=== PATIENT | male | born 1960 | race Caucasian/White ===

== ENCOUNTER 2019-01-12 17:35 | Emergency (ER) | payer OTHER ==
[~2019-01-12] VITALS: Ht 172.7 cm; Wt 77.1 kg
[2019-01-12 18:25] LABS: BASOPHILS ABSOLUTE AUTO 0.06 K/mm3 (0.00-0.23); BASOPHILS PERCENT AUTO 1 % (0-2); EOSINOPHILS ABSOLUTE AUTO 0.21 K/mm3 (0.00-0.68); EOSINOPHILS PERCENT AUTO 2 % (0-6); Hematocrit 40.5 % (37.0-53.0); Hemoglobin 14.9 g/dL (13.5-17.5); IMMATURE GRAN ABSOLUTE AUTO 0.05 K/mm3 (0.00-0.10); IMMATURE GRAN PERCENT AUTO 1 % (0-1); LYMPHOCYTES ABSOLUTE AUTO 2.23 K/mm3 (0.84-5.20); LYMPHOCYTES PERCENT AUTO 21 % (21-46); MONOCYTES ABSOLUTE AUTO 1.76 K/mm3 (0.16-1.47); MONOCYTES PERCENT AUTO 17 % (4-13); Mean Corpuscular HGB 40.5 pg (26.0-34.0); Mean Corpuscular HGB Conc 36.8 g/dL (31.5-36.5); Mean Corpuscular Volume 110 fL (80-100); NEUTROPHILS ABSOLUTE AUTO 6.23 K/mm3 (1.96-9.15); NEUTROPHILS PERCENT AUTO 59 % (41-73); Platelet Count 108 K/mm3 (150-400); RDW Coefficient Variation 14.2 % (11.7-14.2); RDW Standard Deviation 58.4 fL (35.1-46.3); Red Blood Cell Count 3.68 M/mm3 (4.30-5.90); White Blood Cell Count 10.54 K/mm3 (4.00-11.30)
[2019-01-12 18:43] LABS: Alanine Aminotransfer (ALT/SGP 58 U/L (12-78); Albumin, Blood 2.5 g/dL (3.4-5.0); Albumin/Globulin Ratio 0.5 (0.8-1.8); Alk Phos 121 U/L (50-136); Anion Gap 8 mmol/L (6-16); Aspartate Aminotrans (AST/SGOT 81 U/L (12-37); Bilirubin, Total 1.9 mg/dL (0.1-1.0); Blood Urea Nitrogen 6 mg/dL (8-24); Bun/Creatinine Ratio 8.7 (12.0-20.0); CO2, Blood 19 mmol/L (21-32); Calcium, Blood 9.1 mg/dL (8.5-10.1); Chloride, Blood 101 mmol/L (98-108); Creatinine, Blood 0.69 mg/dL (0.60-1.20); Globulin, Blood 5.2 g/dL (2.2-4.0); Glomerular Filtration Rate >60 (60-); Glucose, Blood 109 mg/dL (70-99); Potassium, Blood 4.5 mmol/L (3.5-5.5); Sodium, Blood 128 mmol/L (136-145); Total Protein, Blood 7.7 g/dL (6.4-8.2)
[2019-01-12 18:48] LABS: Source, Urine Clean Catch
[2019-01-12 18:51] LABS: Appearance, Urine Clear (Clear); Bilirubin, Urine Neg (Neg); Blood, Urine Neg (Neg); Color, Urine Amber (P-Yellow); Glucose Qualitative, Urine Neg (Neg); Ketones, Urine 1+ (Neg); Leukocyte Esterase, Urine 1+ (Neg); Nitrite, Urine Neg (Neg); Protein, Urine 1+ (Neg); Urobilinogen, Urine 1+ (Normal)
[2019-01-12 18:58] LABS: International Normalized Ratio 1.67; Prothrombin Time Results 16.9 Sec (9.7-11.5)
[2019-01-12 18:59] LABS: Bacteria Many /hpf; Hyaline Casts 0-2 /lpf (0-2); Mucus Light (0-Heavy); Red Blood Cells, Urine 0-2 /hpf (0-2); Squamous Epithelial Cells Rare /hpf (Few); White Blood Cells, Urine 0-2 /hpf (0-5)
== END 2019-01-12 20:45 | disposition home or self-care (01) ==
LOC: ER 17:35
PROVIDERS: Emergency Medicine
DX: K74.60 Unspecified cirrhosis of liver (principal); R18.8 Other ascites; K44.9 Diaphragmatic hernia without obstruction or gangrene; Z88.7 Allergy status to serum and vaccine; I10 Essential (primary) hypertension; F17.200 Nicotine dependence, unspecified, uncomplicated
CPT/HCPCS: 36415; 74177; 80053; 81001; 83690; 85025; 85610; 85730; 87086; 99284-25; Q9967

== ENCOUNTER 2019-01-13 11:14 | Emergency (ER) | payer OTHER ==
[~2019-01-13] VITALS: Ht 172.7 cm; Wt 77.1 kg
== END 2019-01-13 16:23 | disposition home or self-care (01) ==
LOC: ER 11:14
DX: K70.31 Alcoholic cirrhosis of liver with ascites (principal); Z88.7 Allergy status to serum and vaccine; I10 Essential (primary) hypertension; F17.200 Nicotine dependence, unspecified, uncomplicated
CPT/HCPCS: 99282

== ENCOUNTER 2019-01-14 14:36 | Day surgery (SDC) | payer OTHER | END 2019-01-14 22:49 | disposition home or self-care (01) | LOC: US 14:36 | DX: R18.8 Other ascites (principal) | CPT/HCPCS: 49083 ==

== ENCOUNTER 2019-01-15 16:19 | Emergency (ER) | payer OTHER ==
[~2019-01-15] VITALS: Ht 172.7 cm; Wt 72.6 kg
== END 2019-01-15 18:31 | disposition home or self-care (01) ==
LOC: ER 16:19
DX: R18.8 Other ascites (principal); K72.90 Hepatic failure, unspecified without coma; I10 Essential (primary) hypertension; F17.200 Nicotine dependence, unspecified, uncomplicated; Z88.7 Allergy status to serum and vaccine
CPT/HCPCS: 49083; 99284-25

== ENCOUNTER 2019-07-23 13:19 | Day surgery (SDC) | payer OTHER ==
[~2019-07-23 13:19] MED LIST: ACET325UDC PO; ALBU2.5V5 INH; ANTI-DIARR1 MG/7.5 M PO; FURO40 PO; SPIR50 PO
== END 2019-07-23 23:13 | disposition home or self-care (01) ==
LOC: US 13:19
DX: R18.8 Other ascites (principal); K74.60 Unspecified cirrhosis of liver
CPT/HCPCS: 49083

== ENCOUNTER → 2019-08-10 | Day surgery (SDC) | payer OTHER | LOC: US 08-05 08:00 | DX: K70.31 Alcoholic cirrhosis of liver with ascites (principal) | CPT/HCPCS: 76705 ==

== ENCOUNTER 2019-10-27 22:09 | Inpatient (IN) | payer OTHER ==
[~2019-10-27] VITALS: Ht 175.3 cm; Wt 57.6 kg
[2019-10-27 22:46] LABS: BASOPHILS PERCENT AUTO 1 % (0-2); EOSINOPHILS ABSOLUTE AUTO 0.33 K/mm3 (0.00-0.68); EOSINOPHILS PERCENT AUTO 3 % (0-6); Hematocrit 37.3 % (37.0-53.0); Hemoglobin 12.1 g/dL (13.5-17.5); IMMATURE GRAN ABSOLUTE AUTO 0.05 K/mm3 (0.00-0.10); IMMATURE GRAN PERCENT AUTO 1 % (0-1); LYMPHOCYTES ABSOLUTE AUTO 2.45 K/mm3 (0.84-5.20); LYMPHOCYTES PERCENT AUTO 24 % (21-46); MONOCYTES ABSOLUTE AUTO 1.49 K/mm3 (0.16-1.47); MONOCYTES PERCENT AUTO 14 % (4-13); Mean Corpuscular HGB 34.5 pg (26.0-34.0); Mean Corpuscular HGB Conc 32.4 g/dL (31.5-36.5); Mean Corpuscular Volume 106 fL (80-100); Mean Platelet Volume 9.2 fL (9.1-12.4); NEUTROPHILS ABSOLUTE AUTO 5.99 K/mm3 (1.96-9.15); NEUTROPHILS PERCENT AUTO 58 % (41-73); Platelet Count 178 K/mm3 (150-400); RDW Coefficient Variation 16.4 % (11.7-14.2); RDW Standard Deviation 64.3 fL (35.1-46.3); Red Blood Cell Count 3.51 M/mm3 (4.30-5.90); White Blood Cell Count 10.41 K/mm3 (4.00-11.30)
[2019-10-27 23:01] LABS: International Normalized Ratio 1.09; Prothrombin Time Results 11.6 Sec (9.7-11.5)
[2019-10-27 23:05] LABS: Alanine Aminotransfer (ALT/SGP 32 U/L (12-78); Albumin, Blood 3.3 g/dL (3.4-5.0); Albumin/Globulin Ratio 0.7 (0.8-1.8); Alk Phos 114 U/L (50-136); Anion Gap 8 mmol/L (6-16); Aspartate Aminotrans (AST/SGOT 135 U/L (12-37); Bilirubin, Total 0.8 mg/dL (0.1-1.0); Blood Urea Nitrogen 16 mg/dL (8-24); Bun/Creatinine Ratio 16.4 (12.0-20.0); CO2, Blood 26 mmol/L (21-32); Calcium, Blood 10.5 mg/dL (8.5-10.1); Chloride, Blood 109 mmol/L (98-108); Creatinine, Blood 0.98 mg/dL (0.60-1.20); Ethanol (Alcohol), Blood, Med <3 mg/dL; Globulin, Blood 4.7 g/dL (2.2-4.0); Glomerular Filtration Rate >60 (60-); Glucose, Blood 97 mg/dL (70-99); Potassium, Blood 3.6 mmol/L (3.5-5.5); Sodium, Blood 143 mmol/L (136-145); Troponin I 0.358 ng/mL (0.000-0.040)
[2019-10-28 00:27] LABS: Source, Urine Catheter
[2019-10-28 00:32] LABS: Bilirubin, Urine Neg (Neg); Blood, Urine 3+ (Neg); Glucose Qualitative, Urine Neg (Neg); Ketones, Urine Neg (Neg); Leukocyte Esterase, Urine Neg (Neg); Nitrite, Urine Neg (Neg); Protein, Urine 1+ (Neg); Urobilinogen, Urine NORM (Normal)
[2019-10-28 00:33] LABS: Appearance, Urine Clear (Clear); Color, Urine Yellow (P-Yellow)
[2019-10-28 00:39] LABS: Bacteria Few /hpf; Red Blood Cells, Urine 0-2 /hpf (0-2); Squamous Epithelial Cells Not Seen /hpf (Few); White Blood Cells, Urine 0-2 /hpf (0-5)
[2019-10-28 00:42] LABS: U Amphetamine Screen Not Detected; U Barbituate Screen Not Detected; U Benzodiazapine Screen Not Detected; U Buprenorphine Screen Not Detected; U Cannabinoids Screen Not Detected; U Cocaine Screen Not Detected; U Methadone Screen Not Detected; U Methamphetamine Screen Not Detected; U Opiates Screen DETECTED; U Oxycodone Screen Not Detected; U Phencyclidine Screen Not Detected; U Propoxyphene Screen Not Detected
[2019-10-28 03:04] LABS: BASOPHILS ABSOLUTE AUTO 0.13 K/mm3 (0.00-0.23); BASOPHILS PERCENT AUTO 1 % (0-2); EOSINOPHILS ABSOLUTE AUTO 0.57 K/mm3 (0.00-0.68); EOSINOPHILS PERCENT AUTO 6 % (0-6); Hematocrit 32.2 % (37.0-53.0); Hemoglobin 10.5 g/dL (13.5-17.5); IMMATURE GRAN ABSOLUTE AUTO 0.03 K/mm3 (0.00-0.10); IMMATURE GRAN PERCENT AUTO 0 % (0-1); LYMPHOCYTES ABSOLUTE AUTO 2.82 K/mm3 (0.84-5.20); LYMPHOCYTES PERCENT AUTO 28 % (21-46); MONOCYTES ABSOLUTE AUTO 1.66 K/mm3 (0.16-1.47); MONOCYTES PERCENT AUTO 16 % (4-13); Mean Corpuscular HGB 35.1 pg (26.0-34.0); Mean Corpuscular HGB Conc 32.6 g/dL (31.5-36.5); Mean Corpuscular Volume 108 fL (80-100); Mean Platelet Volume 8.6 fL (9.1-12.4); NEUTROPHILS ABSOLUTE AUTO 5.03 K/mm3 (1.96-9.15); NEUTROPHILS PERCENT AUTO 49 % (41-73); Platelet Count 151 K/mm3 (150-400); RDW Coefficient Variation 16.4 % (11.7-14.2); RDW Standard Deviation 65.2 fL (35.1-46.3); Red Blood Cell Count 2.99 M/mm3 (4.30-5.90); White Blood Cell Count 10.24 K/mm3 (4.00-11.30)
[2019-10-28 03:19] LABS: Acetaminophen, Random <2.0 ug/mL (10.0-30.0); Alanine Aminotransfer (ALT/SGP 40 U/L (12-78); Aspartate Aminotrans (AST/SGOT 195 U/L (12-37); Salicylate <1.7 mg/dL (2.8-20.0)
[2019-10-28 03:22] LABS: Anion Gap 6 mmol/L (6-16); Blood Urea Nitrogen 16 mg/dL (8-24); Bun/Creatinine Ratio 18.1 (12.0-20.0); CO2, Blood 25 mmol/L (21-32); Calcium, Blood 10.1 mg/dL (8.5-10.1); Chloride, Blood 113 mmol/L (98-108); Creatinine, Blood 0.88 mg/dL (0.60-1.20); Glomerular Filtration Rate >60 (60-); Glucose, Blood 101 mg/dL (70-99); Potassium, Blood 3.6 mmol/L (3.5-5.5); Sodium, Blood 144 mmol/L (136-145)
--- NOTE | 2019-10-28 05:33 | NUR ---
SUMMARY PT ARRIVED TO FLOOR CONFUSED AND IN NO DISTRESS. PT FOUND TO BE FORGETFUL AND NOT REDIRECTABLE. PT VERY UNSTEADY ON FEET. DESTINEY VEST WAS APPLIED TO PT PT TO KEEP HIM SAFE. PROVIDER LEVON WAS CALLED AND A RESTRAINT ORDER WAS RECIEVED. POISON CONTROL CALLED AND ASKED TO HAVE AST, ALT, TYLENOL, ASA LEVELS CHECKED AT [address] RICHARDSON CALLED AND LABS WERE ORDERED. POISON CONTROL CALLED AFTER LAB RESULTS AND STATED THAT TECHNICAL STAFF ASSISTANT RECOMMENDED PT PUT ON IV NAC PROTOCOL. DR. RICHARDSON CALLED AND ASKED TO INFORM POISON CONTROL OF PT HX OF LIVER CIRROHIS SECONDARRY TO ETOH ABUSE. ALSO TO INFORM OF HX OF ELEVATED AST, ALT. POISON CONTROL CALLED AND INFORMED. PT REMAINS CONFUSED. AND ATTEMPTS TO GET OUT OF BED. PT HAS SLEPT OFF AND. CALL LIGHT IN REACH. BED ALARM ON.
--- NOTE | 2019-10-28 10:30 | NUR ---
ADVISED OF DESTRUCTIVE BEHAVIOR. REQUEST WRIST RESTRAINTS. OK TO USE. ADVISED OF INCREASE CONFUSION. PER PT/OT THEY SAID PATIENT WAS INITIALLY COOPERATIVE BUT GRADUALLY GOT CONFUSED. FOR EXAMPLE, WHEN IN BATHROOM TRIED TO USE HAND RAIL AND TWIST IT TO FLUSH TOILET. RADIOLOGY FOLLOW THRU CANCELLED. PATIENT HOLDING GOWN AND SAYS " SAW THIS OFF." WANTS "HIS CAR AND PHONE". DOES NOT KNOW WHERE HE IS. DOES NOT REORIENT. ASSISTED BACK TO BED. DESTINEY AND BILATERAL WRIST RESTRAINTS IN PLACE. PRIOR TO WRIST RESTRAINTS PATIENT PULLED OFF IV TUBING AND PULLED TELE LEADS IN 1/. IV FLUID AND TELE D'C. WCTM.
[2019-10-28] MEDS ORDERED: MORP20L SL (12:13)
[2019-10-28] MEDS ORDERED: LORA.5 PO (12:14)
--- NOTE | 2019-10-28 13:53 | NUR ---
REPORT TO BRUNILDA WATERMAN . TRANSFERRED TO 344
--- NOTE | 2019-10-28 14:32 | NUR ---
1350 PT TRANSFERRED FROM [facility]. HE IS RESTRAINED IN BED DUE TO HIS INCREASED CONFUSION AND AGGITATION. HE IS ATTEMPTING TO GET BED AND IS A FALLS RISK. REPORT OBTAINED FROM SULMA WATERMAN.
--- NOTE | 2019-10-28 15:42 | NUR ---
PT REMAINS COMBATIVE AND ANGRY . HE IS VERY CONFUSED AND NONSENSICAL IN HIS SPEACH, OFTEN GOING FROM ONE TOPIC TO THE NEXT . HE DOES NOT KNOW WHERE HE IS AND THE ONLY THING HE SEEMS TO KNOW THAT IS FACT IS HIS DAUGHTER AND THAT HE IS RESTRAINED.
--- NOTE | 2019-10-29 04:27 | NUR ---
SHIFT SUMMARY ALERT, FOLLOWING COMMANDS. ATTEMPTED TO EXIT BED X2; REMAINED IN RESTRAINTS FOR SAFETY. UNABLE TO RE-ORIENT. CALLS OUT OFTEN WITH MULTIPLE REQUESTS. C/O PAIN/DISCOMFORT TO BACK; NEW ORDER FROM ON-CALL PROVIDER FOR MI TYLENOL 650 Q6. MEDICATED PER EMAR. VSS/AFEBRILE. APPEARED TO REST MINIMALLY. NO OTHER ACUTE CHANGES. BED IN LOWEST POSITION; ALARM ON. CALL LIGHT WITHIN REACH. WCTM. REPORT TO ONCOMING RN.
[2019-10-29 05:12] LABS: BASOPHILS ABSOLUTE AUTO 0.09 K/mm3 (0.00-0.23); BASOPHILS PERCENT AUTO 1 % (0-2); EOSINOPHILS ABSOLUTE AUTO 0.45 K/mm3 (0.00-0.68); EOSINOPHILS PERCENT AUTO 7 % (0-6); Hematocrit 31.9 % (37.0-53.0); Hemoglobin 10.6 g/dL (13.5-17.5); IMMATURE GRAN ABSOLUTE AUTO 0.02 K/mm3 (0.00-0.10); IMMATURE GRAN PERCENT AUTO 0 % (0-1); LYMPHOCYTES ABSOLUTE AUTO 1.78 K/mm3 (0.84-5.20); LYMPHOCYTES PERCENT AUTO 27 % (21-46); MONOCYTES ABSOLUTE AUTO 0.99 K/mm3 (0.16-1.47); MONOCYTES PERCENT AUTO 15 % (4-13); Mean Corpuscular HGB Conc 33.2 g/dL (31.5-36.5); Mean Platelet Volume 9.1 fL (9.1-12.4); NEUTROPHILS ABSOLUTE AUTO 3.25 K/mm3 (1.96-9.15); NEUTROPHILS PERCENT AUTO 49 % (41-73); Platelet Count 144 K/mm3 (150-400); RDW Coefficient Variation 15.9 % (11.7-14.2); RDW Standard Deviation 62.3 fL (35.1-46.3); Red Blood Cell Count 3.03 M/mm3 (4.30-5.90); White Blood Cell Count 6.58 K/mm3 (4.00-11.30)
[2019-10-29 05:14] LABS: Mean Corpuscular Volume 105 fL (80-100)
[2019-10-29 05:38] LABS: Alanine Aminotransfer (ALT/SGP 61 U/L (12-78); Albumin, Blood 2.8 g/dL (3.4-5.0); Albumin/Globulin Ratio 0.7 (0.8-1.8); Alk Phos 91 U/L (50-136); Anion Gap 10 mmol/L (6-16); Aspartate Aminotrans (AST/SGOT 252 U/L (12-37); Bilirubin, Total 0.9 mg/dL (0.1-1.0); Blood Urea Nitrogen 15 mg/dL (8-24); Bun/Creatinine Ratio 20.2 (12.0-20.0); CO2, Blood 21 mmol/L (21-32); Calcium, Blood 10.3 mg/dL (8.5-10.1); Chloride, Blood 114 mmol/L (98-108); Creatinine, Blood 0.74 mg/dL (0.60-1.20); Globulin, Blood 4.1 g/dL (2.2-4.0); Glomerular Filtration Rate >60 (60-); Glucose, Blood 71 mg/dL (70-99); Magnesium, Blood 1.4 mg/dL (1.6-2.4); Phosphorus, Blood 2.8 mg/dL (2.5-4.9); Potassium, Blood 3.6 mmol/L (3.5-5.5); Sodium, Blood 145 mmol/L (136-145); Total Protein, Blood 6.9 g/dL (6.4-8.2)
--- NOTE | 2019-10-29 09:03 | NUR ---
0800 TALKED WITH DAUGHTER AR BARBER AND SHE REQUESTED HER FATHER BE FED REGULAR DIET AND STATED HE HAS BEEN EATING REGULAR FOOD WHILE LIVING AT HOME WITH NO ASPIRATION ISSUES. HE DOES NOT HAVE PNEUMONIA, LUNG SOUNDS CLEAR AND O2 WNL. DAUGHTER REQUESTED CHANGE OF CODE STATUS TO DNR. SHE GAVE THESE INSTURCTIONS TO THE DOCTOR OVER THE PHONE. DOCTOR DISCUSSED POSSIBLE DISCHARGE TO HOME , DAUGHTER STATED PT LIVES ALONE AND SHE AND HER BROTHER CHECK ON HIM BUT HE DOES NOT HAVE 24 HOUR CARE WHICH HE REQUIRES. DIVING SUPERVISOR TO CONTACT DAUGHTER TO ARRANGE DISCHARGE CARE.
--- NOTE | 2019-10-29 10:32 | NUR ---
1030 PT CALM AND EATING . DC OLD RESTRAINT ORDER FOR WRIST . RENEWED ORDER FOR DESTINEY PT IS STILL CONFUSED AND NOT ORIENTED TO OWN ABILITES.
--- NOTE | 2019-10-29 16:29 | NUR ---
PT DOING MUCH BETTER TODAY. STILL HAS MOMENTS OF GREAT CONFUSION AND STILL HAS NO CONCEPT OF HIS LIMITS BUT HE IS MORE COMPLIANT WITH CARES AND STAFF IS ABLE TO REASON BETTER WITH HIM. HE IS IN VEST RESTRAINTS AND DOING WELL WITH THOSE. HE IS CONTINENT ABLE WITH SBA USE THE BEDSIDE COMMODE. NURSE TOOK PATIENT OUTSIDE TODAY TO HELP CALM HIM AND GIVE HIM A CHANGE OF SCENERY WHICH HE SEEMED TO ENJOY AND CALMED HIM DOWN. HE IS TAKING FOOD PO WITH NO ISSUES OF ASPIRATIONS NOTED. HE IS HAVING BMS AND PASSING URINE WITH NO ISSUES.
--- NOTE | 2019-10-30 04:08 | NUR ---
SHIFT SUMMARY PT HAS HAD NO ACUTE CHANGES THIS SHIFT, HAS BEEN AGITATED AND UNCOOPERATIVE WITH CARE T/O SHIFT, ATTEMPTING TO EXIT BED & UNTIE DESTINEY T/O SHIFT, PT DID NOT SLEEP, ZYPREXA ADMIN X1 W/MINIMAL EFFECT, PT SITTING UP IN BED AT THIS TIME, DESTINEY SECURED, BED ALARM ACTIVE, WILL CONT TO MONITOR UNTIL REPORT GIVEN TO DAY RN.
--- NOTE | 2019-10-30 07:19 | NUR ---
Remote monitoring This RN confirmed with remote monitor Katheryn that video monitoring is on for patient.
--- NOTE | 2019-10-30 08:00 | NUR ---
1030 Restraints Renewed Received approval from Dr. Estrada to renew restraints for patient safety. A/Ox1 to self. Patient is not redirectable and attempting to climb out of bed with out assistance. Does not use call light appropriately.
--- NOTE | 2019-10-30 16:31 | NUR ---
Shift Summary A/O to self. Patient has been cooperative and pleasant, no bouts of agitation seen this shift. Unable to use call light appropriately. Attempts to climb out of bed and pulls on vest restraints. Patient asked this RN to "use scissors to cut this off" referring to the restraints. Appetite was poor. Denied pain. VSS. No other concerns.
--- NOTE | 2019-10-31 05:38 | NUR ---
SHIFT SUMMARY PT WAS BELLIGERENT, KICKING AND CURSING AT STAFF WHILE OFFERING PT BEDPAN, BROKER IN CHARGE WAS LEAVING ROOM ([facility]) AND STATED THE PT "KNEED ME IN THE RIBS", HALDOL WAS ADMINISTERED TO PT @ 1904 WITH LITTLE EFFECT, PT CONTINUED TO BE UNCOOPERATIVE WITH CARE & INAPPROPIATE W/STAFF. RECEIVED 1X ORDER FOR COMBINATION IM BENADRYL, HALDOL & ATIVAN- THIS WAS ADMINISTERED @ 2034. THIS WAS MUCH MORE EFFETIVE, PT SLEPT WELL T/O THE NIGHT, WAS NOT AGRESSIVE W/STAFF DURING CARE & REPOSITIONING. PT SLEEPING AT THIS TIME, BED ALARM ACTIVE, WILL CONT TO MONITOR UNTIL REPORT GIVEN TO DAY RN.
[2019-10-31 05:51] LABS: Anion Gap 10 mmol/L (6-16); Blood Urea Nitrogen 12 mg/dL (8-24); Bun/Creatinine Ratio 16.6 (12.0-20.0); CO2, Blood 24 mmol/L (21-32); Calcium, Blood 11.1 mg/dL (8.5-10.1); Chloride, Blood 111 mmol/L (98-108); Creatinine, Blood 0.73 mg/dL (0.60-1.20); Glomerular Filtration Rate >60 (60-); Glucose, Blood 99 mg/dL (70-99); Sodium, Blood 145 mmol/L (136-145)
--- NOTE | 2019-10-31 07:13 | NUR ---
Remote monitoring This RN verified with [facility] that remote video monitor is on.
--- NOTE | 2019-10-31 08:29 | NUR ---
Restraints renewed Per Dr. Lin, renew vest restraints and add on bilateral wrist restraints to protect lines, patient safety, and staff safety.
--- NOTE | 2019-10-31 10:42 | NUR ---
Bladder Scan Scanned volume of [address] Davenport. Patient denies urge to void. Will rescan this evening around [address] Davenport and report accordingly.
--- NOTE | 2019-10-31 12:07 | NUR ---
Received verbal orders from Dr. Davenport for repeat STAT Serum Calcium, Sodium, and Potassium.
[2019-10-31 12:33] LABS: Calcium, Blood 10.8 mg/dL (8.5-10.1); Potassium, Blood 3.8 mmol/L (3.5-5.5)
--- NOTE | 2019-10-31 13:15 | NUR ---
DC Q6 CBG Patient's blood sugars have been stable. Per Dr. Lin, Q6 blood sugar checks have been d/c'd
--- NOTE | 2019-10-31 14:36 | NUR ---
Received verbal order from Dr. Davenport to add Magnesium to lab draw @ 4068. Updated Dr. Davenport on Mag level, order received for Mag Sulfate 1.5g once.
--- NOTE | 2019-10-31 17:36 | NUR ---
Bladder scan Notified Dr. Davenport of bladder scan volume of 208 mL. No new orders.
--- NOTE | 2019-10-31 17:36 | NUR ---
IV fluids Received verbal order from Dr. Davenport to change NS KCl @ 125 to D5 1/2 NS @ 75.
--- NOTE | 2019-10-31 17:40 | NUR ---
Shift Summary Patient has been lethargic most of the day. Opens eyes to verbal stimuli and mumbles incoherently. Continues to pull on wrist restraints and does not follow command appropriately. Has been incontinent today, condom cath in place for 24 hour urine collection which started at 1000 today. Repositioned x 2 assist. Agitation persists with repositioning, no signs of combativeness. Will continue to monitor.
--- NOTE | 2019-11-01 03:58 | NUR ---
SHIFT SUMMARY PT HAS BEEN SLEEPING MOST OF SHIFT, DOES WAKE AND MUMBLE INCOHERENTLY TO SELF OCCASIONALLY, CONTINUES TO CURSE & MOAN W/REPOSITIONING BUT DENIES PAIN, PT QUICKLY RETURNS TO SLEEP AND APPEARS MORE COMFORTABLE AFTER REPOSITION. CONDOM CATH REPLACED THIS SHIFT W/COLLECTION BAG ON ICE FOR 24HR URINE, PT SLEEPING AT THIS TIME, BED ALARM ACTIVE, WILL CONT TO MONITOR UNTIL REPORT GIVEN TO DAY RN.
[2019-11-01 05:20] LABS: BASOPHILS ABSOLUTE AUTO 0.04 K/mm3 (0.00-0.23); BASOPHILS PERCENT AUTO 0 % (0-2); EOSINOPHILS ABSOLUTE AUTO 0.01 K/mm3 (0.00-0.68); EOSINOPHILS PERCENT AUTO 0 % (0-6); Hematocrit 35.8 % (37.0-53.0); Hemoglobin 12.3 g/dL (13.5-17.5); IMMATURE GRAN ABSOLUTE AUTO 0.09 K/mm3 (0.00-0.10); IMMATURE GRAN PERCENT AUTO 1 % (0-1); LYMPHOCYTES PERCENT AUTO 13 % (21-46); MONOCYTES ABSOLUTE AUTO 2.32 K/mm3 (0.16-1.47); MONOCYTES PERCENT AUTO 13 % (4-13); Mean Corpuscular HGB 35.1 pg (26.0-34.0); Mean Corpuscular HGB Conc 34.4 g/dL (31.5-36.5); Mean Platelet Volume 9.2 fL (9.1-12.4); NEUTROPHILS ABSOLUTE AUTO 13.62 K/mm3 (1.96-9.15); NEUTROPHILS PERCENT AUTO 74 % (41-73); Platelet Count 183 K/mm3 (150-400); RDW Standard Deviation 59.7 fL (35.1-46.3); White Blood Cell Count 18.38 K/mm3 (4.00-11.30)
[2019-11-01 05:37] LABS: Alanine Aminotransfer (ALT/SGP 58 U/L (12-78); Albumin, Blood 3.2 g/dL (3.4-5.0); Albumin/Globulin Ratio 0.7 (0.8-1.8); Alk Phos 89 U/L (50-136); Anion Gap 8 mmol/L (6-16); Aspartate Aminotrans (AST/SGOT 102 U/L (12-37); Bilirubin, Total 1.1 mg/dL (0.1-1.0); Blood Urea Nitrogen 14 mg/dL (8-24); CO2, Blood 23 mmol/L (21-32); Calcium, Blood 9.4 mg/dL (8.5-10.1); Chloride, Blood 115 mmol/L (98-108); Creatinine, Blood 0.82 mg/dL (0.60-1.20); Globulin, Blood 4.9 g/dL (2.2-4.0); Glomerular Filtration Rate >60 (60-); Glucose, Blood 132 mg/dL (70-99); Magnesium, Blood 1.5 mg/dL (1.6-2.4); Phosphorus, Blood 1.8 mg/dL (2.5-4.9); Potassium, Blood 3.3 mmol/L (3.5-5.5); Sodium, Blood 146 mmol/L (136-145); Total Protein, Blood 8.1 g/dL (6.4-8.2)
[2019-11-01 05:39] LABS: Mean Corpuscular Volume 102 fL (80-100)
[2019-11-01 05:42] LABS: Cortisol, AM 24.7 ug/dL (6.7-22.6)
[2019-11-01 10:36] LABS: Protein, Urine Quantitative 17.5 mg/dL (0.0-11.9)
--- NOTE | 2019-11-01 18:41 | NUR ---
SHIFT SUMMARY: PT SOMNOLENT MOST OF THE SHIFT. ALERT TO SELF AT TIMES, MUMBLES INCOHERENTLY. WEARING BILATERAL SOFT WRIST RESTRAINTS AND DESTINEY VEST. MAG, POTASSIUM, AND PHOS REPLETED IV. CLINIMIX STARTED FOR ENHANCED NUTRITION. PT EATS FINE IF HE'S FED BY STAFF. REFUSED ORAL CARE WHEN AWAKE. STAGE 1 PRESSURE ULCER ON SACRUM COVERED BY MEPILEX. URINE SPECIMEN SENT TO LAB. AFEBRILE THIS SHIFT. PLAN IS POSSIBLE PLACEMENT.
[2019-11-02 05:28] LABS: BASOPHILS ABSOLUTE AUTO 0.07 K/mm3 (0.00-0.23); BASOPHILS PERCENT AUTO 1 % (0-2); EOSINOPHILS ABSOLUTE AUTO 0.35 K/mm3 (0.00-0.68); EOSINOPHILS PERCENT AUTO 3 % (0-6); Hematocrit 33.2 % (37.0-53.0); Hemoglobin 11.1 g/dL (13.5-17.5); IMMATURE GRAN ABSOLUTE AUTO 0.05 K/mm3 (0.00-0.10); IMMATURE GRAN PERCENT AUTO 0 % (0-1); LYMPHOCYTES ABSOLUTE AUTO 2.41 K/mm3 (0.84-5.20); LYMPHOCYTES PERCENT AUTO 18 % (21-46); MONOCYTES ABSOLUTE AUTO 1.66 K/mm3 (0.16-1.47); MONOCYTES PERCENT AUTO 13 % (4-13); Mean Corpuscular HGB 34.7 pg (26.0-34.0); Mean Corpuscular HGB Conc 33.4 g/dL (31.5-36.5); Mean Corpuscular Volume 104 fL (80-100); Mean Platelet Volume 9.1 fL (9.1-12.4); NEUTROPHILS ABSOLUTE AUTO 8.53 K/mm3 (1.96-9.15); NEUTROPHILS PERCENT AUTO 65 % (41-73); Platelet Count 162 K/mm3 (150-400); RDW Coefficient Variation 16.1 % (11.7-14.2); RDW Standard Deviation 61.3 fL (35.1-46.3); White Blood Cell Count 13.07 K/mm3 (4.00-11.30)
[2019-11-02 05:55] LABS: Albumin, Blood 2.6 g/dL (3.4-5.0); Anion Gap 8 mmol/L (6-16); Blood Urea Nitrogen 24 mg/dL (8-24); Bun/Creatinine Ratio 30.8 (12.0-20.0); CO2, Blood 21 mmol/L (21-32); Calcium, Blood 8.8 mg/dL (8.5-10.1); Chloride, Blood 110 mmol/L (98-108); Creatinine, Blood 0.78 mg/dL (0.60-1.20); Glomerular Filtration Rate >60 (60-); Glucose, Blood 113 mg/dL (70-99); Magnesium, Blood 1.7 mg/dL (1.6-2.4); Phosphorus, Blood 2.6 mg/dL (2.5-4.9); Potassium, Blood 3.8 mmol/L (3.5-5.5); Sodium, Blood 139 mmol/L (136-145)
--- NOTE | 2019-11-02 06:28 | NUR ---
11/02/19 0600 PT SITTING UP IN BED WITH RESTRAINTS IN PLACE. STATES HE WAS LOOKING FOR HIS GLASSES. RN PUT HIS GLASSESS ON AND ASSISTED HIM TO LAY DOWN IN BED. VITALS STABLE. DR ARNETT WAS HERE AND SPOKE WITH THE PT. PT STILL CONFUSED AND THINKS HE IS GOING TO "COURT" NOW. REOIENTED TO SURROUNDINGS.
--- NOTE | 2019-11-02 17:58 | NUR ---
SHIFT SUMMARY: PT MUCH MORE ALERT TODAY, ENGAGING IN CONVERSATION. ORIENTED TO SELF AND PLACE. ABLE TO FEED SELF TODAY, HAD DECENT INPUT. TMAX 100.6 THIS MORNING, RESOLVED WITHOUT INTERVENTION. SPENT SEVERAL HOURS IN CHAIR, IS WALKING TO BR WITH FWW, GAIT BELT AND 1 PERSON SBA, GAIT IS IMPROVED. SPOKE TO PT'S DAUGHTER GILLIAN TODAY, GAVE UPDATE ON PT CONDITION. RESTRAINTS REDUCED TO DESTINEY VEST ONLY MENTATION HAS IMPROVED BUT IS STILL IMPULSIVE ABOUT GETTING OOB. PARTICIPATING IN PT/OT. PLAN IS POSSIBLE PLACEMENT.
[2019-11-03 04:58] LABS: Hematocrit 34.6 % (37.0-53.0); Hemoglobin 11.5 g/dL (13.5-17.5)
[2019-11-03 05:16] LABS: Albumin, Blood 2.6 g/dL (3.4-5.0); Anion Gap 10 mmol/L (6-16); Blood Urea Nitrogen 25 mg/dL (8-24); Bun/Creatinine Ratio 31.1 (12.0-20.0); CO2, Blood 19 mmol/L (21-32); Calcium, Blood 8.7 mg/dL (8.5-10.1); Chloride, Blood 107 mmol/L (98-108); Creatinine, Blood 0.81 mg/dL (0.60-1.20); Glomerular Filtration Rate >60 (60-); Glucose, Blood 109 mg/dL (70-99); Magnesium, Blood 1.3 mg/dL (1.6-2.4); Potassium, Blood 3.8 mmol/L (3.5-5.5); Sodium, Blood 136 mmol/L (136-145)
[2019-11-03 15:07] LABS: A/G RATIO 0.9 (0.7-1.7); ALBUMIN 3.2 g/dL (2.9-4.4); ALPHA-1-GLOBULIN 0.3 g/dL (0.0-0.4); ALPHA-2-GLOBULIN 0.8 g/dL (0.4-1.0); BETA GLOBULIN 1.2 g/dL (0.7-1.3); GAMMA GLOBULIN 1.6 g/dL (0.4-1.8); IMMUNOGLOBULIN A, QN, SERUM 637 mg/dL (90-386); IMMUNOGLOBULIN G, QN, SERUM 1596 mg/dL (603-1613); IMMUNOGLOBULIN M, QN, SERUM 130 mg/dL (20-172); M-SPIKE Not Observed g/dL (Not Observed); PROTEIN, TOTAL, SERUM 7.2 g/dL (6.0-8.5)
--- NOTE | 2019-11-03 17:16 | NUR ---
PT HAS BEEN ALERT TO SELF THIS SHIFT. PT CONFUSED ABOUT LOCATION AND DATE. PT USES CALL LIGHT APPROPRIATELY. PT STANDBY ASSIST TO THE RESTROOM, MULTIPLE TIMES THIS SHIFT. PT CONTINUES TO HAVE MULTIPLE LOOSE STOOLS THIS SHIFT. OT STATED THAT PT IS MUCH MORE ACTIVE AND ALERT THIS SHIFT THAN ON VISIT YESTERDAY. PT HAS ALTERNATED SITTING UP IN CHAIR AND LYING IN BED THROUGHOUT THIS SHIFT. PT CURRENTLY LYING IN BED WATCHING TELEVISION.
[2019-11-04 04:52] LABS: Hematocrit 32.6 % (37.0-53.0)
--- NOTE | 2019-11-04 04:54 | NUR ---
FLEET OPERATIONS MANAGER SUMMARY PT AAOX2, PLEASANT AND COOPERATIVE. PT HAS BEEN USING HIS CALL LIGHT MOST OF THE TIME BUT STILL FORGETS NOW AND THEN. STANDBY ASSIST TO THE BATHROOM. PT DENIES PAIN, SOB, OR COUGH. ON CLINIMIX AT 50 ML/HR, PT STILL HAS POOR PO INTAKE. SEEMS TO PREFER SODA OVER WATER. VSS, WILL CONTINUE TO MONITOR.
[2019-11-04 05:09] LABS: Albumin, Blood 2.6 g/dL (3.4-5.0); Anion Gap 9 mmol/L (6-16); Blood Urea Nitrogen 24 mg/dL (8-24); CO2, Blood 19 mmol/L (21-32); Calcium, Blood 8.6 mg/dL (8.5-10.1); Chloride, Blood 108 mmol/L (98-108); Creatinine, Blood 0.86 mg/dL (0.60-1.20); Glomerular Filtration Rate >60 (60-); Glucose, Blood 115 mg/dL (70-99); Magnesium, Blood 1.6 mg/dL (1.6-2.4); Potassium, Blood 4.1 mmol/L (3.5-5.5); Sodium, Blood 136 mmol/L (136-145)
[2019-11-04] MEDS ORDERED: LACT10SY PO (13:33)
[2019-11-04] MEDS ORDERED: LISI5 PO (13:33)
[2019-11-04] MEDS ORDERED: MAGNESIUM OXID500 MG PO (13:34)
[2019-11-04] MEDS ORDERED: ACET325 PO (13:34)
--- NOTE | 2019-11-04 15:53 | NUR ---
PT DISCHARGED THE PT VERBALIZED UNDERSTANDING OF THE DC INSTRUCTIONS, THE PT PTS PRESCRIPTIONS WERE FAXED TO [facility] IN [place] PER HIS REQUEST, THE PT APPEARED TO BE BREATHING EASILY ON RA, THE PT WAS TRANSPORTED VIA WHEELCHAIR TO THE FRONT WHERE HIS DAUGHTER WAS TO PICK HIM UP, THE DAUGHTER WAS MADE AWARE THAT [facility] WOULD MAKE COTACT WITH THEM AND THAT [facility] WOULD CONTACT THEM REGARDING FOLLOW UP
[2019-11-05 14:08] LABS: M-SPIKE, % Not Observed % (Not Observed); PROTEIN,TOTAL,URINE 7.7 mg/dL (Not Estab.)
== END 2019-11-04 14:54 | disposition hospice, home (50) | DRG 917 ==
LOC: ER 22:09 → MEDS 22:11
PROVIDERS: Emergency Medicine; Hospitalist; Internal Medicine Nephrology; ADMIT Family Medicine
DX: T40.2X1A Poisoning by other opioids, accidental (unintentional), initial encounter (principal); G92 Toxic encephalopathy; E43 Unspecified severe protein-calorie malnutrition; R64 Cachexia; Z68.1 Body mass index [BMI] 19.9 or less, adult; F03.91 Unspecified dementia, unspecified severity, with behavioral disturbance; E87.1 Hypo-osmolality and hyponatremia; N17.9 Acute kidney failure, unspecified; E87.2 Acidosis; E46 Unspecified protein-calorie malnutrition; F17.200 Nicotine dependence, unspecified, uncomplicated; K70.30 Alcoholic cirrhosis of liver without ascites; I25.2 Old myocardial infarction; J44.9 Chronic obstructive pulmonary disease, unspecified; E83.52 Hypercalcemia; E88.09 Other disorders of plasma-protein metabolism, not elsewhere classified; R13.12 Dysphagia, oropharyngeal phase; Z66 Do not resuscitate; D64.9 Anemia, unspecified; I12.9 Hypertensive chronic kidney disease with stage 1 through stage 4 chronic kidney disease, or unspecified chronic kidney disease; E87.6 Hypokalemia; K72.90 Hepatic failure, unspecified without coma; R62.7 Adult failure to thrive; N18.2 Chronic kidney disease, stage 2 (mild); F10.20 Alcohol dependence, uncomplicated; R63.0 Anorexia
CPT/HCPCS: 36415; 70450; 71046; 80048; 80053; 80069; 81001; 81050; 82140; 82306; 82310; 82397; 82530; 82533; 82784; 82947; 83735; 83970; 84100; 84132; 84156; 84165; 84166; 84295; 84443; 84450; 84460; 84484; 85014; 85018; 85025; 85610; 86334; 86335; 92610; 93005; 93010; 96360; 96361; 96372; 97110; 97116; 97162; 97166; 97530; 97535; 99285-25; G0378; G0480; J0630; J1200; J1630; J1650; J1956; J2060; J3475; J3480; J7030; J7040; J7042; J7050; J7060; J7131

== ENCOUNTER 2021-09-20 12:54 | Emergency (ER) | payer OTHER ==
[~2021-09-20] VITALS: Ht 170.2 cm; Wt 68.0 kg
[~2021-09-20 12:54] MED LIST changes: +ACET325 PO; +LACT10SY PO; +LISI5 PO; +LORA.5 PO; +MAGNESIUM OXID500 MG PO; +MORP20L SL
[2021-09-20] MEDS ORDERED: SPIR25 (14:08)
[2021-09-20 14:11] LABS: BASOPHILS ABSOLUTE AUTO 0.07 K/mm3 (0.00-0.23); BASOPHILS PERCENT AUTO 1 % (0-2); EOSINOPHILS PERCENT AUTO 3 % (0-6); Hematocrit 36.6 % (37.0-53.0); Hemoglobin 13.7 g/dL (13.5-17.5); IMMATURE GRAN ABSOLUTE AUTO 0.04 K/mm3 (0.00-0.10); IMMATURE GRAN PERCENT AUTO 1 % (0-1); LYMPHOCYTES ABSOLUTE AUTO 1.78 K/mm3 (0.84-5.20); LYMPHOCYTES PERCENT AUTO 25 % (21-46); MONOCYTES ABSOLUTE AUTO 0.65 K/mm3 (0.16-1.47); MONOCYTES PERCENT AUTO 9 % (4-13); Mean Corpuscular HGB 42.2 pg (26.0-34.0); Mean Corpuscular HGB Conc 37.4 g/dL (31.5-36.5); Mean Corpuscular Volume 113 fL (80-100); Mean Platelet Volume 9.7 fL (9.1-12.4); NEUTROPHILS ABSOLUTE AUTO 4.36 K/mm3 (1.96-9.15); NEUTROPHILS PERCENT AUTO 61 % (41-73); Platelet Count 120 K/mm3 (150-400); RDW Coefficient Variation 14.5 % (11.7-14.2); RDW Standard Deviation 60.1 fL (35.1-46.3); Red Blood Cell Count 3.25 M/mm3 (4.30-5.90)
[2021-09-20 14:48] LABS: Albumin, Blood 3.3 g/dL (3.4-5.0); Albumin/Globulin Ratio 0.7 (0.8-1.8); Bilirubin, Total 1.6 mg/dL (0.1-1.0); Bun/Creatinine Ratio 7.8 (12.0-20.0); Calcium, Blood 13.3 mg/dL (8.5-10.1); Creatinine, Blood 1.29 mg/dL (0.60-1.20); Globulin, Blood 4.5 g/dL (2.2-4.0); Magnesium, Blood 0.6 mg/dL (1.6-2.4); Potassium, Blood 3.9 mmol/L (3.5-5.5); Total Protein, Blood 7.8 g/dL (6.4-8.2)
[2021-09-20 17:00] LABS: Albumin, Blood 2.7 g/dL (3.4-5.0); Albumin/Globulin Ratio 0.8 (0.8-1.8); Bilirubin, Total 1.4 mg/dL (0.1-1.0); Bun/Creatinine Ratio 8.9 (12.0-20.0); Calcium, Blood 11.6 mg/dL (8.5-10.1); Creatinine, Blood 1.24 mg/dL (0.60-1.20); Globulin, Blood 3.3 g/dL (2.2-4.0); Magnesium, Blood 1.3 mg/dL (1.6-2.4); Potassium, Blood 4.7 mmol/L (3.5-5.5)
[2021-09-20] MEDS ORDERED: MULTI-VITAMIN1 EAC2 PO (17:12)
== END 2021-09-20 17:25 | disposition home or self-care (01) ==
LOC: ER 12:54
PROVIDERS: Physician Assistant
DX: E83.42 Hypomagnesemia (principal); E83.52 Hypercalcemia; F10.20 Alcohol dependence, uncomplicated; Z88.7 Allergy status to serum and vaccine; Z79.899 Other long term (current) drug therapy; I12.9 Hypertensive chronic kidney disease with stage 1 through stage 4 chronic kidney disease, or unspecified chronic kidney disease; N18.9 Chronic kidney disease, unspecified; J44.9 Chronic obstructive pulmonary disease, unspecified; K72.90 Hepatic failure, unspecified without coma; F17.200 Nicotine dependence, unspecified, uncomplicated
CPT/HCPCS: 36415; 80053; 83735; 84100; 85025; 93005; 93010; 96365; 96366; 99283-25; A9270; J3475; J7030

== ENCOUNTER 2021-10-16 11:52 | Inpatient (IN) | payer OTHER ==
[~2021-10-16] VITALS: Ht 203.2 cm; Wt 65.4 kg
[~2021-10-16 11:52] MED LIST changes: +MULTI-VITAMIN1 EAC2 PO; +SPIR25
[2021-10-16 13:06] LABS: Source, Urine Clean Catch
[2021-10-16 13:09] LABS: Appearance, Urine Hazy (Clear); Blood, Urine 2+ (Neg); Color, Urine Amber (P-Yellow); Glucose Qualitative, Urine Neg (Neg); Ketones, Urine Neg (Neg); Leukocyte Esterase, Urine Neg (Neg); Nitrite, Urine Neg (Neg); Protein, Urine 2+ (Neg); Urobilinogen, Urine 2+ (Normal)
[2021-10-16 13:34] LABS: Bacteria Not Seen /hpf; Bilirubin, Urine 3+ (Neg); Squamous Epithelial Cells Few /hpf (Few); White Blood Cells, Urine Not Seen /hpf (0-5)
[2021-10-16 14:00] LABS: Magnesium, Blood 0.8 mg/dL (1.6-2.4); Phosphorus, Blood 3.1 mg/dL (2.5-4.9)
[2021-10-16 14:31] LABS: BASOPHILS ABSOLUTE AUTO 0.05 K/mm3 (0.00-0.23); BASOPHILS PERCENT AUTO 0 % (0-2); EOSINOPHILS ABSOLUTE AUTO 0.14 K/mm3 (0.00-0.68); EOSINOPHILS PERCENT AUTO 1 % (0-6); Hematocrit 35.6 % (37.0-53.0); IMMATURE GRAN ABSOLUTE AUTO 0.38 K/mm3 (0.00-0.10); IMMATURE GRAN PERCENT AUTO 2 % (0-1); LYMPHOCYTES ABSOLUTE AUTO 1.21 K/mm3 (0.84-5.20); LYMPHOCYTES PERCENT AUTO 6 % (21-46); MONOCYTES ABSOLUTE AUTO 2.05 K/mm3 (0.16-1.47); MONOCYTES PERCENT AUTO 10 % (4-13); Mean Platelet Volume 10.7 fL (9.1-12.4); NEUTROPHILS PERCENT AUTO 82 % (41-73); NRBC ABSOLUTE 0.02 K/mm3 (0.00-0.02); NRBC Auto 0.1 /100 WBC (0.0-0.2); Platelet Count 204 K/mm3 (150-400); White Blood Cell Count 20.73 K/mm3 (4.00-11.30)
[2021-10-16 14:38] LABS: Albumin, Blood 2.7 g/dL (3.4-5.0); Albumin/Globulin Ratio 0.6 (0.8-1.8); Bilirubin, Direct 12.2 mg/dL (0.0-0.3); Bilirubin, Indirect 5.7 mg/dL (0.1-0.7); Bilirubin, Total 17.9 mg/dL (0.1-1.0); Bun/Creatinine Ratio 12.3 (12.0-20.0); Calcium, Blood 11.8 mg/dL (8.5-10.1); Creatinine, Blood 1.71 mg/dL (0.60-1.20); Globulin, Blood 4.8 g/dL (2.2-4.0); Potassium, Blood 3.9 mmol/L (3.5-5.5); Total Protein, Blood 7.5 g/dL (6.4-8.2)
[2021-10-16 16:45] LABS: Mean Corpuscular HGB 43.3 pg (26.0-34.0)
[2021-10-16 18:21] LABS: Bun/Creatinine Ratio 12.6 (12.0-20.0); Calcium, Blood 10.5 mg/dL (8.5-10.1); Creatinine, Blood 1.67 mg/dL (0.60-1.20)
[2021-10-16 18:27] LABS: International Normalized Ratio 2.13; Prothrombin Time Results 21.3 Sec (9.7-11.5)
[2021-10-16 18:46] LABS: Creatine Kinase MB 3.3 ng/mL (0.0-3.6); Creatine Kinase MB Index 0.7 (0.0-4.0)
--- NOTE | 2021-10-16 19:02 | NUR ---
pcu admit pt brought to pcu-11 by dontrell from er @ approx 1830. pt a&o x3. vss. monitor showing sr, hr 70's. spo2 > 92% on ra. pt w/ yellow tinted skin t/o. report to be given to accepting pcu group leader rn at this time.
[2021-10-17 00:47] LABS: Bun/Creatinine Ratio 13.2 (12.0-20.0); Calcium, Blood 10.2 mg/dL (8.5-10.1); Creatinine, Blood 1.74 mg/dL (0.60-1.20); Potassium, Blood 3.5 mmol/L (3.5-5.5)
--- NOTE | 2021-10-17 05:55 | NUR ---
SHIFT SUMMARY PT ALERT AND ORIENTED X3. AFEBRILE. BP STABLE. HR SR 60'S W/ BBB. DENIES PAIN. ON RA SATS OVER 95%. JAUNDICED SKIN. FORGETFUL AT TIMES. ON LACTULOSE, FREQUENTLY NEEDING TO URINATE AND HAVE BM'S. STOOLS ARE BROWN AND WATERY. IN BED SLEEPING WITH CALL ALARM AT SIDE. WILL CONTINUE TO MONITOR UNTIL REPORT GIVEN TO DAYSHIFT RN
[2021-10-17 06:32] LABS: BASOPHILS ABSOLUTE AUTO 0.03 K/mm3 (0.00-0.23); BASOPHILS PERCENT AUTO 0 % (0-2); EOSINOPHILS ABSOLUTE AUTO 0.26 K/mm3 (0.00-0.68); EOSINOPHILS PERCENT AUTO 2 % (0-6); Hemoglobin 10.4 g/dL (13.5-17.5); IMMATURE GRAN ABSOLUTE AUTO 0.21 K/mm3 (0.00-0.10); IMMATURE GRAN PERCENT AUTO 2 % (0-1); LYMPHOCYTES ABSOLUTE AUTO 1.09 K/mm3 (0.84-5.20); LYMPHOCYTES PERCENT AUTO 8 % (21-46); MONOCYTES ABSOLUTE AUTO 1.33 K/mm3 (0.16-1.47); MONOCYTES PERCENT AUTO 10 % (4-13); Mean Corpuscular HGB 43.3 pg (26.0-34.0); Mean Corpuscular HGB Conc 37.1 g/dL (31.5-36.5); Mean Corpuscular Volume 117 fL (80-100); Mean Platelet Volume 10.3 fL (9.1-12.4); NEUTROPHILS ABSOLUTE AUTO 10.65 K/mm3 (1.96-9.15); NEUTROPHILS PERCENT AUTO 79 % (41-73); Platelet Count 155 K/mm3 (150-400); RDW Standard Deviation 78.2 fL (35.1-46.3); White Blood Cell Count 13.57 K/mm3 (4.00-11.30)
[2021-10-17 06:56] LABS: Albumin, Blood 2.9 g/dL (3.4-5.0); Albumin/Globulin Ratio 0.9 (0.8-1.8); Bilirubin, Direct 11.3 mg/dL (0.0-0.3); Bilirubin, Indirect 4.1 mg/dL (0.1-0.7); Bilirubin, Total 15.4 mg/dL (0.1-1.0); Bun/Creatinine Ratio 14.1 (12.0-20.0); Creatinine, Blood 1.77 mg/dL (0.60-1.20); Globulin, Blood 3.1 g/dL (2.2-4.0); Magnesium, Blood 1.3 mg/dL (1.6-2.4); Potassium, Blood 3.5 mmol/L (3.5-5.5)
[2021-10-17 08:11] LABS: HBSAG SCREEN Negative (Negative); HCV AB <0.1 (0.0-0.9); HEP A AB, IGM Negative (Negative); HEP B CORE AB, IGM Negative (Negative)
[2021-10-17 12:20] LABS: Automated BF WBC Count 0.139 K/mm3 (0-999); Body Fluid WBC Count 139 /mm3 (0-999)
[2021-10-17 12:24] LABS: Albumin, Body Fluid 0.2 g/dL
[2021-10-17 12:34] LABS: Protein, Body Fluid 0.4 g/dL
[2021-10-17 12:39] LABS: Lactate Dehydrogenase, Body Fl 41 U/L
[2021-10-17 13:09] LABS: RBC Count, Body Fluid 56 /mm3 (0-0)
[2021-10-17 13:14] LABS: Total Cell Count, Body Fluid 100
[2021-10-17 13:15] LABS: Appearance, Body Fluid Clear (Clear); Color, Body Fluid Yellow (None-Yellow)
--- NOTE | 2021-10-17 18:17 | NUR ---
SHIFT SUMMARY; ASSUMED CARE AT 0700. A/A/OX3. SLEEPS MOST OF DAY BUT EASILY ARROUSABLE. UP TO BEDSIDE COMMODE SEVERAL TIMES WITH STANBY ASSIST. REPOSITIONS SELF NEEDED. IV FLUIDS INFUSING AT 100ML/HR. BLOOD PRESSURE SOFT DURING SHIFT, BUT APPEARS TO BE BASELINE FOR PT. SKIN COLOR YELLOW. NO ACUTE MEDICAL CHANGES, WILL CONTINUE TO MONITOR AND TREAT UNTIL CHANGE OF SHIFT.
--- NOTE | 2021-10-17 22:44 | NUR ---
PT CONFUSED AND REMOVED IV. PRESSURE APPLIED TO STOP BLEEDING. RN NOTIFIED.
[2021-10-18 04:19] LABS: BASOPHILS ABSOLUTE AUTO 0.07 K/mm3 (0.00-0.23); BASOPHILS PERCENT AUTO 1 % (0-2); EOSINOPHILS ABSOLUTE AUTO 0.34 K/mm3 (0.00-0.68); EOSINOPHILS PERCENT AUTO 2 % (0-6); Hematocrit 27.9 % (37.0-53.0); Hemoglobin 10.3 g/dL (13.5-17.5); IMMATURE GRAN ABSOLUTE AUTO 0.24 K/mm3 (0.00-0.10); IMMATURE GRAN PERCENT AUTO 2 % (0-1); LYMPHOCYTES ABSOLUTE AUTO 1.29 K/mm3 (0.84-5.20); LYMPHOCYTES PERCENT AUTO 9 % (21-46); MONOCYTES ABSOLUTE AUTO 1.35 K/mm3 (0.16-1.47); MONOCYTES PERCENT AUTO 9 % (4-13); Mean Corpuscular HGB 43.5 pg (26.0-34.0); Mean Corpuscular HGB Conc 36.9 g/dL (31.5-36.5); Mean Corpuscular Volume 118 fL (80-100); Mean Platelet Volume 10.2 fL (9.1-12.4); NEUTROPHILS ABSOLUTE AUTO 11.34 K/mm3 (1.96-9.15); NEUTROPHILS PERCENT AUTO 78 % (41-73); Platelet Count 147 K/mm3 (150-400); RDW Standard Deviation 77.8 fL (35.1-46.3); Red Blood Cell Count 2.37 M/mm3 (4.30-5.90); White Blood Cell Count 14.63 K/mm3 (4.00-11.30)
[2021-10-18 04:38] LABS: International Normalized Ratio 2.43; Prothrombin Time Results 24.1 Sec (9.7-11.5)
[2021-10-18 04:39] LABS: Albumin, Blood 2.6 g/dL (3.4-5.0); Albumin/Globulin Ratio 0.8 (0.8-1.8); Bilirubin, Total 16.6 mg/dL (0.1-1.0); Bun/Creatinine Ratio 15.1 (12.0-20.0); Creatinine, Blood 1.52 mg/dL (0.60-1.20); Globulin, Blood 3.1 g/dL (2.2-4.0); Potassium, Blood 3.6 mmol/L (3.5-5.5); Total Protein, Blood 5.7 g/dL (6.4-8.2)
--- NOTE | 2021-10-18 05:36 | NUR ---
SHIFT SUMMARY ASSUMED CARE OF PT AT 1900. PT IS ALERT BUT NOT ORIENTED. PT WAS VERY CONFUSED T/O THE NIGHT. PT WAS NOT ABLE TO UNDERSTAND HOW TO PUT ON THE ATTENDS AND WOULD ASK WHERE HE WAS CONSTANTLY. AT ONE POINT PT RIPPED HIS IV AND TELL OFF AND SAID THAT HE WAS GOING TO LEAVE. CIWAH'S WERE 11-19. PT NEEDED 1L NC WHILE SLEEPING. PT HAS YELLOW WATERY STOOL. PT CON/INCONTIENT OF URINE AND BOWEL.
--- NOTE | 2021-10-18 15:22 | NUR ---
Pt is obtunded, did not awaken enough to take am medications. His daughter and son are present at the bedside. They are both aware of pt's prognosis, and are willing and able to care for him at home on hospice services. Although pt has stated he quit drinking alcohol, his daughter states he is not being forthcoming, and that he has continued to drink alcohol. He is currently on CIWA protocol, but has not been exhibiting behaviors indicative of withdrawal. Pt will be going home with hospice for end stage liver disease. He is placed on comfort care today per Dr. Estrada, and will continue with NS IV, as well as IV medications. Most oral medications have been d/c'd with the exception of lactulose as pt has not been taking them due to lethargy. Labs d/c'd. IV fluid, IV abx remain in place. Pt is now Medical Floor status. CM to begin d/c planning with hospice.
--- NOTE | 2021-10-18 17:46 | NUR ---
SHIFT SUMMARY PT WAS VERY DROWSY AND CONFUSED THROUGHOUT THE SHIFT. HE WAS UNABLE TO TRANSFER AND REQUIRED ASSISTANCE MOVING IN BED AND USING THE BEDPAN. NSR 60S, SOFT BP. DAUGHTER AND SON VISITED, SPOKE W THE DOCTOR AND PALLIATIVE, AND DECIDED TO PUT HIM ON COMFORT CARE. PO MEDS WERE DISCONTINUED BUT NS @175ML/HR AND Q4 CIWAS WERE CONTINUED. HE IS BEING DISCHARGED TO [facility] TOMORROW 10/19 @1500. TRANSFERED TO MED NO TELE @1745 TO [facility]
--- NOTE | 2021-10-18 18:49 | NUR ---
PATIENT ARRIVED ON MEDICAL FLOOR AT 1745. PATIENT HAS BEEN RESTING COMFORTABLY. NS INFUSING AT 125MLS/HR. PATIENT ASKED TO USE THE BEDPAN ONCE SINCE ARRIVING. CALL LIGHT WITHIN REACH. WARM BLANKETS APPLIED. PATIENT YELLED OUT ONCE FOR HELP.
--- NOTE | 2021-10-19 01:10 | NUR ---
PT UP OUT OF BED, FOUND ON FLOOR ON KNEES. PT IS CONFUSED, DIFFICULT TO REDIRECT. ASSISTED BACK TO BED, ATTENDS DRY. DESTINEY VEST APPLIED, 4 RAILS.
--- NOTE | 2021-10-19 07:45 | NUR ---
Rn summary: Patient is confused and difficult to redirect. He keeps trying to get out of bed. Pt up to BSC with some difficulty. Did void 100 cc of very dk matias urine. Patient was medicated with Ativan 2mg which seemed to make him worse. He did fall in room on his knees, scrape to left knee. [place] restraint and 4 rails. Pt was medicated at CA for discomfort. He fought the restraints until about 0230. He turnes himself in bed. He has rested last few hours. Was incontinent of urine, moderate amount, this am so st cath not done. Bladder scan showed >670 but pt has significant ascites. I fluids discontinued. Bed alarm has been on all shift.
--- NOTE | 2021-10-19 09:20 | NUR ---
PATIENT REPOSITIONED, APPEARS TO BE SLEEPING COMFORTABLY AT THIS TIME. PATIENT IS NOT AWAKE ENOUGH TO EAT BREAKFAST THIS MORNING. NICOTINE PATCH APPLIED.
--- NOTE | 2021-10-19 11:13 | NUR ---
PATIENT IS SLEEPING. REPOSITIONED WITH PILLOWS PATIENT ALLOWS. PATIENT APPEARS TO BE COMFORTABLE. NO DISTRESS AT THIS TIME.
--- NOTE | 2021-10-19 13:40 | NUR ---
PATIENT REPOSITIONED FOR COMFORT. PATIENT HAS BEEN SLEEPING COMFORTABLY. NO DISTRESS AT THIS TIME. PATIENT HAS A HARD TIME WAKING UP TODAY. NO VOID SINCE THIS AM. NO PO INTAKE.
[2021-10-19 16:48] LABS: Source, Urine Foley catheter
[2021-10-19 16:56] LABS: Blood, Urine 1+ (Neg); Color, Urine Amber (P-Yellow); Glucose Qualitative, Urine Neg (Neg); Ketones, Urine 2+ (Neg); Leukocyte Esterase, Urine 1+ (Neg); Nitrite, Urine Pos (Neg); Protein, Urine 2+ (Neg); Urobilinogen, Urine 2+ (Normal)
[2021-10-19 17:38] LABS: Bilirubin, Urine 3+ (Neg)
[2021-10-19 17:39] LABS: Appearance, Urine Hazy (Clear)
[2021-10-19 17:40] LABS: Mucus Light (0-Heavy)
[2021-10-19 17:41] LABS: Amorphous Light (0-Heavy); Hyaline Casts 0-2 /lpf (0-2)
[2021-10-19 17:44] LABS: Bacteria Mod /hpf; Red Blood Cells, Urine 0-2 /hpf (0-2); Squamous Epithelial Cells Rare /hpf (Few)
--- NOTE | 2021-10-19 18:44 | NUR ---
PATIENT HAD NOT VOIDED SINCE SHIFT CHANGE THIS AM. PATIENT WAS BLADDER SCANNED. 576 RETAINED URINE. 16FR MURRELL COUDE WAS PLACED AFTER A 14 FR DIDNT WORK. THIS NURSE WITH HELP FROM [employer] LOCKE PLACED MURRELL. URINE IS TEA COLORED. DRAINING TO GRAVITY.
--- NOTE | 2021-10-20 07:28 | NUR ---
DURING NURSE HAND OFF PATIENT FAMILY EXPRESSED WANTING THE PATIENT TO BE ON FLUIDS FOR HYDRATION. DR. RIVERO NOTIFIED WITH ORDERS. PATIENT SLEPT THROUGHOUT THE ENTIRE SHIFT. MAINTAINED ON COMFORT MEASURES. NYASIA MAINTAINED.
--- NOTE | 2021-10-20 17:54 | NUR ---
SHIFT SUMMARY: ON COMFORT CARE. SLEPT MOST OF THE DAY. ATIVAN IV GIVEN FOR RESTLESSNESS. DENIED PAIN. RESPONDS TO SPEECH AT TIMES. SKIN JAUNDICED AND ITCHY. MURRELL DRAINING MINIMAL DARK BEBA URINE. CAN CHANGE HIS OWN POSITION IN BED, BUT FOAM DRESSING PLACED ON R TROCHANTER TO PREVENT SKIN BREAKDOWN HE PREFERS TO LAY ON R SIDE. PT'S BROTHER, SON, AND DAUGHTER VISITED ALL MORNING. LACTULOSE ENEMA GIVEN, NO RESULT AT THIS TIME.
--- NOTE | 2021-10-21 03:59 | NUR ---
PATIENT NOTED WITH INCREASED PERIODS OF ANXIETY/CONFUSIO PULLING AT MURRELL AND IV LINE. MEDICATED PER AUG. PATIENT ABLE TO ANSWER SOME YES NO QUESTIONS. TURNED TO BEST OF ABILITY WHEN WE ATTEMPTED TO TURN PATIENT HE WOULD IMMEDIATELY LAY BACK ON HIS RIGHT SIDE. PER REPORT PATIENT WITH RED AREA TO RIGHT HIP DUE TO LAYING ON IT. MEPILEX IN PLACE HOWEVER VERY DIFFICULT TO KEEP PATIENT OFF THAT SIDE HE ALWAYS IMMEDIATELY TURNS BACK TO RIGHT SIDE AND GETS UPSET WHEN HE IS FREQUENTLY MOVED. ATTEMPTED TO EXPLAIN TO PATIENT MULTIPLE TIMES HOWEVER UNSUCCESSFUL. WILL CONTINUE TO ATTEMPT TO TURN PATIENT.
--- NOTE | 2021-10-21 18:29 | NUR ---
PATIENT HAD NO SIGNIFICANT CHANGES THIS SHIFT. SKIN IS YELLOW. HE WASN'T INTERESTED IN MUCH INTERACTION, FOOD, OR DRINK. HE DOES HAVE FLUID RUNNING AND APPEARS TO BE COMFORTABLE. URINE IS DARK - ROOT BEER APPEARANCE. HE HAS VISITORS THIS AFTERNOON, ALSO WITHOUT MUCH INTERACTION.
--- NOTE | 2021-10-22 01:27 | NUR ---
PATIENT NOTED TO BE VERY ITCHY, SCRATCHING HIMSELF THROUGOUT HIS ENTIRE BODY AND LEADING TO HIM PULLING AT HIS MURRELL. MD NOTIFIED WITH ORDER. BENADRYL CREAM NOT RELIEVING SYMPTOM THERFORE MD NOTIFIED WITH ORDER OF IV BENADRYL. AT THIS TIME PATIENT IS LESS RESTLESS AND AT THIS TIME NO SCRATCHING HIMSELF.
--- NOTE | 2021-10-22 06:41 | NUR ---
AT START OF SHIFT PATIENT NOTED TO BE SCRATCHING, APPLIED ALOE VERA LOTION. PATIENT CONTINUED TO SCRATCH, LEVON PAN NOTIFIED [facility] ORDER FOR BENADRYL CREAM. CREAM APPLIED WITH MINIMAL RELIEF PT CONTINUED TO SCRATCH ALL OVER HIS BODY AND PULLED AT HIS MURRELL. DR. PAULSON NOTIFIED WITH ORDER FOR BENADRYL IV. MEDICATION GIVEN WITH GREAT THERAPEUTIC EFFECT PATIENT STOPPED SCRATCHING. PATIENT NOTED WITH CHANGE IN RESPIRATORY STATUS, COUGHING A LOT, CONGESTED, WITH SECREATIONS AND APPEARED IN DISTRESS. IV FLUIDS STOPPED AT APPROXIMATELY 0145. MEDICATED PER MAR/SUCTIONED AND FAMILY NOTIFIED THEY HAD REQUESTED TO BE NOTIFIED IF A CHANGE IN PATIENT STATUS HAPPENED. MEDICATIONS PER MAR GIVEN HOWEVER PATIENT CONTINUED TO BE IN DISTRESS (MOANING LOUDLY) AND FAMILY AT BEDSIDE DURING THIS TIME. NOTIFIED OF PATIENT SITUATION WITH ORDERS. HALDOL GIVEN AND PATINET RESTING COMFORTABLY. ALL FAMILY QUESTIONS ANSWERED.
--- NOTE | 2021-10-22 07:21 | NUR ---
ASSUMED CARE: PT COMFORT CARE. COARSE RESPIRATIONS HEARD FROM DOOR. NIGHT RN STATES RECENTLY MEDICATED FOR SECRETIONS. FAMILY AT BEDSIDE. NO FURTHER NEEDS OR CONCERNS AT THIS TIME.
--- NOTE | 2021-10-22 11:27 | NUR ---
Comfort care visit: Yair is sleeping while this medical underwriter entered the room. He did not awaken to voice or touch. Spoke with nursing and update received. Pt is jaundiced, resp even, unlabored and regular at 20/min. He is mottling to his feet bilat. Abd is firm and protuberant. No family is at the bedside currently. If pt continues to decline he may not be able to get home with hospice support. Current plan is to discharge home with family and [facility] tomorrow. PC to continue to follow.
--- NOTE | 2021-10-22 11:52 | NUR ---
SUPERVISOR FINISHING ROOM CALLED RN TO BEDSIDE DUE TO RESPIRATORY CHANGE. PT'S RESPIRATIONS APPEAR TO HAVE PAUSES BETWEEN BREATHS. CALL TO PT'S DAUGHTER GILLIAN TO LET HER KNOW OF CHANGES. STATES SHE WILL BE BACK TO SEE PT IN ABOUT A HALF AN HOUR
--- NOTE | 2021-10-22 12:58 | NUR ---
PT'S FAMILY CALLED STAFF TO BEDSIDE. 2 RN VERIFICATION TO CONFIRM THAT PT AT 1251. DR BUSTOS HAS BEEN NOTIFIED. TRAIN BRAKER REPOSITIONED PT IN BED AND FAMILY AT BEDSIDE. WILL NOTIFY STAFF WHEN READY TO HAVE PT PICKED UP BY MORTUARY
--- NOTE | 2021-10-22 16:05 | NUR ---
TG FROM [facility] IN [place] ARRIVED TO COLLECT PT. PT TRANSPORTED OUT VIA [facility]
== END 2021-10-22 12:51 | DRG 432 ==
LOC: ER 11:52 → PCU 16:05 → MEDS 16:05 → PCU 18:28 → MEDS 10-18 17:47
PROVIDERS: Physician Assistant; ADMIT Family Medicine
PROC: 0W9G3ZZ Drainage of Peritoneal Cavity, Percutaneous Approach (ICD-10-PCS; principal; 2021-10-17)
DX: K70.40 Alcoholic hepatic failure without coma (principal); K76.7 Hepatorenal syndrome; E87.1 Hypo-osmolality and hyponatremia; M62.82 Rhabdomyolysis; Z66 Do not resuscitate; Z51.5 Encounter for palliative care; K76.6 Portal hypertension; N17.9 Acute kidney failure, unspecified; F10.239 Alcohol dependence with withdrawal, unspecified; Z78.1 Physical restraint status; D72.829 Elevated white blood cell count, unspecified; K70.31 Alcoholic cirrhosis of liver with ascites; E83.42 Hypomagnesemia; E80.6 Other disorders of bilirubin metabolism; J44.9 Chronic obstructive pulmonary disease, unspecified; K72.10 Chronic hepatic failure without coma; N18.9 Chronic kidney disease, unspecified; E78.5 Hyperlipidemia, unspecified; I12.9 Hypertensive chronic kidney disease with stage 1 through stage 4 chronic kidney disease, or unspecified chronic kidney disease; I25.2 Old myocardial infarction; F03.90 Unspecified dementia, unspecified severity, without behavioral disturbance, psychotic disturbance, mood disturbance, and anxiety; F17.200 Nicotine dependence, unspecified, uncomplicated; Z88.7 Allergy status to serum and vaccine; Z79.899 Other long term (current) drug therapy; Z98.890 Other specified postprocedural states
CPT/HCPCS: 36415; 49083; 76705; 80048; 80053; 80074; 80076; 81001; 82042; 82140; 82247; 82248; 82550; 82553; 83605; 83615; 83690; 83735; 84100; 84157; 85025; 85610; 87040; 87070; 87205; 89051; 93005; 93010; 93975; 96365; 96366; 96367; 96375; 99285-25; A9270; J0696; J1170; J1200; J1630; J1940; J2060; J2405; J3370; J3475; J7030; J7060; J7120; P9046